=== PATIENT | female | born 1980 | race Caucasian/White ===

== ENCOUNTER 2018-02-28 17:39 | Emergency (ER) | payer OTHER ==
--- NOTE | 2018-02-28 18:39 | EDM.PDOC ---
ED HPI GENERAL MEDICAL PROBLEM - General Chief Complaint: Laceration Stated Complaint: LACERATION ON RT ANKLE Time Seen by Provider: 02/28/18 18:35 Source of Information: Reports: Patient, Family, RN Notes Reviewed History Limitations: Reports: No Limitations - History of Present Illness INITIAL COMMENTS - FREE TEXT/NARRATIVE: This 37-year-old female presents to the emergency department today with laceration to her left ankle, she injured herself earlier today when she cut her ankle on a piece of glass she has no functional complaints - Related Data Allergies Allergy/AdvReac Type Severity Reaction Status Date / Time No Known Allergies Allergy Verified 02/28/18 18:13 Home Meds: Home Meds Aspirin 02/28/18 [History] Budesonide/Formoterol Fumarate [Symbicort 160-4.5 Mcg Inhaler] 02/28/18 [ History] Comb No.42/Folic Acid [Prena1 Chew Tablet] 02/28/18 [History] Past Medical History Endocrine/Metabolic History: Reports: Other (See Below) (Thrombophilia on aspirin) - Past Surgical History HEENT Surgical History: Reports: Tonsillectomy Female Surgical History: Reports: D&C Social & Family History - Tobacco Use Smoking Status *Q: Never Smoker ED ROS GENERAL - Review of Systems Review Of Systems: See Below Constitutional: Reports: No Symptoms Musculoskeletal: Reports: No Symptoms Skin: Reports: Burn(s) Neurological: Reports: No Symptoms ED EXAM, SKIN/RASH Exam: See Below Text/Narrative:: Examination of the foot full motion of all digits no functional complaints there is a 2 cm laceration completely through the dermis on the medial aspect of the ankle bleeding is controlled Exam Limited By: No Limitations General Appearance: Alert, WD/WN, No Apparent Distress ED SKIN PROCEDURES - Laceration/Wound Repair Right Ankle Lac/Wound length In cm: 2 Appearance: Subcutaneous Distal NVT: Neuro & Vascular Intact, No Tendon Injury Anesthetic Type: Local Local Anesthesia - Lidocaine (Xylocaine): 1% with EPI Local Anesthetic Volume: 1cc Skin Prep: Saline Saline Irrigation (cc's): 30 Exploration/Debridement/Repair: Wound Explored, In a Bloodless Field, Explored to Base Closed with: Sutures Suture Size: 4-0 # of Sutures: 2 Suture Type: Nylon, Interrupted Tetanus Status Addressed: Yes (2017) Complications: No Course - Vital Signs Last Recorded V/S: Last Vital Signs Temp 97.3 F 02/28/18 18:09 Pulse 79 02/28/18 18:09 Resp 16 02/28/18 18:09 BP 121/83 02/28/18 18:09 Pulse Ox 94 L 02/28/18 18:09 Departure - Departure Time of Disposition: 18:38 Disposition: Home, Self-Care 01 Condition: Good Clinical Impression: Laceration of right ankle Qualifiers: Encounter type: initial encounter Qualified Code(s): S91.011A - Laceration without foreign body, right ankle, initial encounter - Discharge Information Referrals: PCP,None [Primary Care Provider] - Additional Instructions: Suture removal in 10 days, follow wound care instruction sheet, return to the emergency department or your primary care provider for suture removal, call return to the emergency department worsening of symptoms - Assessment/Plan Plan: Assessment Acuity = acute Site and laterality = 2 cm laceration medial aspect right ankle completely through the dermis Etiology = secondary to trauma with glass Manifestations = none Location of injury = Home Lab values = none Plan Suture removal in 10 days, follow wound care instruction sheet This note was dictated using [employer] voice recognition software please call with any questions on syntax or grammar.
== END 2018-02-28 18:54 | disposition home or self-care (01) ==
LOC: JP.ED 17:39
DX: S91.011A Laceration without foreign body, right ankle, initial encounter (principal); Z79.82 Long term (current) use of aspirin; W25.XXXA Contact with sharp glass, initial encounter
CPT/HCPCS: 12001; 99283-25